=== PATIENT | female | born 1940 | race Caucasian/White ===

== ENCOUNTER 2016-07-06 15:36 | Observation (INO) | payer OTHER ==
[~2016-07-06] VITALS: Ht 167.6 cm; Wt 92.0 kg
[2016-07-06 16:58] VITALS: BP 128/82; PULSE 99; RESP 18; TEMP 99.6; O2SAT 99
[2016-07-06] MEDS ORDERED: ISOS30TA3 PO (17:40)
[2016-07-06] MEDS ORDERED: FURO1TAB60 PO (17:40)
[2016-07-06] MEDS ORDERED: LORA-392 PO (17:40)
[2016-07-06] MEDS ORDERED: GLIM1TAB PO (17:40)
[2016-07-06] MEDS ORDERED: SENN8.6T19 PO (17:40)
[2016-07-06] MEDS ORDERED: METO50TA PO (17:40)
[2016-07-06] MEDS ORDERED: PROC10TA PO (17:40)
[2016-07-06] MEDS ORDERED: SPIR50TA PO (17:40)
[2016-07-06] MEDS ORDERED: METF500T PO (17:40)
[2016-07-06] MEDS ORDERED: LORA-392 PO/SL (17:40)
--- NOTE | 2016-07-06 17:41 | PD ---
HPI Chief Complaint: Abdominal Pain Time Seen by Provider: 17:19 Travel History International Travel<30 days: No Contact w/Intl Traveler<30days: No Traveled to known affect area: No History of Present Illness HPI 75 years old female with coughing, shortness of breath, increased abdominal distention and abdominal pain. Patient has history of liver cirrhosis and ascites. Patient states that she has increasing abdominal pain and abdominal distention recently. Patient status post paracentesis in May 2016. Patient was scheduled for paracentesis about 2 weeks ago however patient has some weight loss and paracentesis was not done at that time. Patient states that she has increasing shortness of breath, dyspnea on exertion recently. Patient started having a mild productive cough since yesterday. Patient states that she had low-grade temperature since yesterday. Patient stated that she has mild aching headache. Patient denies any visual change. Patient denies any neck pain. Patient denies any chest pain. Patient states that she has nausea but no vomiting or diarrhea. PFSH Past Medical History Diabetes: Yes Patient Takes Glucophage: Yes ?: Not Menopausal: Yes Social History Alcohol Use: No Tobacco Use: No Allergies-Medications (Allergen,Severity, Reaction): Coded Allergies: Levaquin (Verified Allergy, Severe, 07/06/16) Penicillin (Verified Allergy, Severe, 07/06/16) Reported Meds & Prescriptions Reported Meds & Active Scripts Active Reported Ativan (Lorazepam) 0.5 Mg Tab 1 Mg PO Q4H PRN Ativan (Lorazepam) 0.5 Mg Tab 0.5 Mg PO/SL Q4H PRN Lasix (Furosemide) 40 Mg Tab 40 Mg PO DAILY Spironolactone 50 Mg Tab 50 Mg PO BID Prochlorperazine Maleate 10 Mg Tab 10 Mg PO Q6H PRN Senna-S 8.6-50 mg (Sennosides-Docusate Sodium) 1 Tab Tab 1 Tab PO Q12HR PRN Isosorbide Mononitrate ER (Isosorbide Mononitrate) 30 Mg Cale 30 Mg PO DAILY Metformin (Metformin HCl) 500 Mg Tab 500 Mg PO DAILY With a meal Glimepiride 1 Mg Tab 2 Mg PO BID Take with breakfast or first main meal Metoprolol Tartrate 50 Mg Tab 50 Mg PO BID Review of Systems General / Constitutional: No: Fever Eyes: No: Visual changes HENT: No: Headaches Cardiovascular: No: Chest Pain or Discomfort Respiratory: Positive: Cough, Shortness of Breath Gastrointestinal: Positive: Nausea, Abdominal Pain Genitourinary: No: Dysuria Musculoskeletal: No: Pain Skin: No Rash Neurologic: No: Weakness Psychiatric: No: Depression Endocrine: No: Polydipsia Hematologic/Lymphatic: No: Easy Bruising Physical Exam Narrative GENERAL: Well-nourished, well-developed patient. SKIN: Warm and dry. HEAD: Normocephalic. EYES: No scleral icterus. No injection or drainage. NECK: Supple, trachea midline. No JVD or lymphadenopathy. CARDIOVASCULAR: Regular rate and rhythm without murmurs, gallops, or rubs. RESPIRATORY: Breath sounds equal bilaterally. No accessory muscle use. GASTROINTESTINAL: Abdomen distended. Mild diffuse tenderness over the abdomen. No rebound tenderness. MUSCULOSKELETAL: No cyanosis, or edema. BACK: Nontender without obvious deformity. No CVA tenderness. Neurologic exam normal. Data Data Last Documented VS Vital Signs Date Time Temp Pulse Resp B/P Pulse Ox O2 Delivery O2 Flow Rate FiO2 07/06/16 19:00 98 20 135/72 94 Nasal Cannula 2.0 07/06/16 16:58 99.6 Orders Complete Blood Count With Diff (07/06/16 17:27) Comprehensive Metabolic Panel (07/06/16 17:27) B-Type Natriuretic Peptide (07/06/16 17:27) Prothrombin Time / Inr (Pt) (07/06/16 17:27) Act Partial Throm Time (Ptt) (07/06/16 17:27) Blood Culture (07/06/16 17:27) Lipase (07/06/16 17:27) Urinalysis - C+S If Indicated (07/06/16 17:27) Chest, Single Ap (07/06/16 17:27) Ct Abd/Pel W Iv Contrast(Rout) (07/06/16 17:27) Iv Access Insert/Monitor (07/06/16 17:27) Ecg Monitoring (07/06/16 17:27) Oximetry (07/06/16 17:27) Ammonia (07/06/16 17:27) Morphine Inj (Morphine Inj) (07/06/16 17:45) Ondansetron Inj (Zofran Inj) (07/06/16 17:45) Iohexol 350 Inj (Omnipaque 350 Inj) (07/06/16 19:49) Labs Laboratory Tests Test 07/06/16 07/06/16 18:00 18:05 White Blood Count 3.5 TH/MM3 Red Blood Count 4.62 MIL/MM3 Hemoglobin 13.7 GM/DL Hematocrit 40.6 % Mean Corpuscular Volume 87.8 FL Mean Corpuscular Hemoglobin 29.6 PG Mean Corpuscular Hemoglobin 33.7 % Concent Red Cell Distribution Width 14.7 % Platelet Count 105 TH/MM3 Mean Platelet Volume 9.1 FL Neutrophils (%) (Auto) % Lymphocytes (%) (Auto) % Monocytes (%) (Auto) % Eosinophils (%) (Auto) % Basophils (%) (Auto) % Neutrophils # (Auto) TH/MM3 Lymphocytes # (Auto) TH/MM3 Monocytes # (Auto) TH/MM3 Eosinophils # (Auto) TH/MM3 Basophils # (Auto) TH/MM3 CBC Comment AUTO DIFF Prothrombin Time 11.7 SEC Prothromb Time International 1.1 RATIO Ratio Activated Partial 29.3 SEC Thromboplast Time Sodium Level 132 MEQ/L Potassium Level 3.9 MEQ/L Chloride Level 99 MEQ/L Carbon Dioxide Level 21.2 MEQ/L Anion Gap 12 MEQ/L Blood Urea Nitrogen 9 MG/DL Creatinine 0.86 MG/DL Estimat Glomerular Filtration 64 ML/MIN Rate Random Glucose 97 MG/DL Calcium Level 7.8 MG/DL Total Bilirubin 1.0 MG/DL Aspartate Amino Transf 63 U/L (AST/SGOT) Alanine Aminotransferase 35 U/L (ALT/SGPT) Alkaline Phosphatase 114 U/L B-Type Natriuretic Peptide 101 PG/ML Total Protein 6.8 GM/DL Albumin 3.0 GM/DL Lipase 243 U/L Ammonia 32 MCMOL/L MDM Medical Decision Making Medical Screen Exam Complete: Yes Emergency Medical Condition: Yes Interpretation(s) Last Impressions Chest X-Ray 07/06/161726 Signed Impressions: Service Date/Time: Wednesday, July 06, 2016 17:44 - CONCLUSION: Normal examination for a patient of this age. Jeronimo Berman MD Abdomen/Pelvis CT 07/06/161726 Signed Impressions: Service Date/Time: Wednesday, July 06, 2016 19:36 - CONCLUSION: Liver cirrhosis with varices and moderate ascites. Multiple calcified gallstones without biliary ductal dilatation. Excess fluid in the endometrial cavity. Jeronimo Berman MD 2019 p.m. CBC within normal limit. Platelet 105. Sodium 132. BNP 101. Ammonia 32. INR 1.1. Differential Diagnosis Differential diagnosis including URI, bronchitis, pneumonia, PE, pneumothorax, CHF, ascites, gastritis, PUD, pancreatitis, cholecystitis, colitis, UTI, pyelonephritis. Narrative Course 75 years old female with shortness of breath, abdominal distention, fever, cough , nausea. History of liver cirrhosis and ascites. Patient will be admitted for observation with paracentesis pending in a.m. Diagnosis Primary Impression: Cirrhosis of liver with ascites Qualified Code: K74.60 - Cirrhosis of liver with ascites, unspecified hepatic cirrhosis type Admitting Information Admitting Physician Requests: Observation Steve Cameron MD Jul 06, 2016 17:41
[2016-07-06] MEDS ORDERED: MORPHINE SULFATE 4 MG/ML INJ IV PUSH ONE (17:45)
[2016-07-06] MEDS ORDERED: ONDANSETRON HCL 4 MG/2 ML VIAL IV PUSH ONE (17:45)
[2016-07-06 18:28] VITALS: BP 119/60; PULSE 106; RESP 26; O2SAT 93
[2016-07-06 18:41] LABS: HEMATOCRIT 40.6 % (35.0-46.0); MEAN CELL VOLUME 87.8 FL (80.0-100.0); MEAN CORPUSCULAR HEMOGLOBIN 29.6 PG (27.0-34.0); MEAN CORPUSCULAR HGB CONC 33.7 % (32.0-36.0); PLATELET COUNT 105 TH/MM3 (150-450); RED BLOOD COUNT 4.62 MIL/MM3 (4.00-5.30); RED CELL DISTRIBUTION WIDTH 14.7 % (11.6-17.2); WHITE BLOOD COUNT 3.5 TH/MM3 (4.0-11.0)
[2016-07-06 18:44] LABS: APTT (PATIENT) 29.3 SEC (24.3-30.1); INTERNATIONAL NORMALIZED RATIO 1.1 RATIO; PROTHROMBIN TIME - PATIENT 11.7 SEC (9.8-11.6)
--- NOTE | 2016-07-06 18:45 | RADRPT ---
EXAM DATE/TIME: 07/06/2016 17:44 [facility] COMPARISON: No previous studies available for comparison. INDICATIONS : Cough, Short of Breath. MEDICAL HISTORY : Chronic obstructive pulmonary disease. SURGICAL HISTORY : None. ENCOUNTER: Initial ACUITY: 2 days PAIN SCORE: 0/10 LOCATION: Bilateral chest FINDINGS: A single view of the chest demonstrates the lungs to be symmetrically aerated without evidence of mas s, infiltrate or effusion. The cardiomediastinal contours are unremarkable. Osseous structures are intact. CONCLUSION: Normal examination for a patient of this age. Jeronimo Berman MD on July 06, 2016 at 18:44 Board Certified Radiologist. This report was verified electronically.
[2016-07-06 18:58] LABS: HEMO FLAGS AUTO DIFF
[2016-07-06 19:00] VITALS: BP 135/72; PULSE 98; RESP 20; O2SAT 94
[2016-07-06 19:13] LABS: ANION GAP 12 MEQ/L (5-15); AST (GOT) 63 U/L (15-37); BICARBONATE 21.2 MEQ/L (21.0-32.0); BLOOD UREA NITROGEN 9 MG/DL (7-18); CHLORIDE 99 MEQ/L (98-107); GLOMERULAR FILTRATION RATE 64 ML/MIN (>89); POTASSIUM 3.9 MEQ/L (3.5-5.1); SODIUM (NA) 132 MEQ/L (136-145)
[2016-07-06 19:16] LABS: ALKALINE PHOSPHATASE 114 U/L (45-117); ALT (GPT) 35 U/L (10-53)
[2016-07-06] MEDS ORDERED: IOHEXOL 350 MG/ML 10 ML VIAL (for RAD DIAG) IV ONE (19:49)
--- NOTE | 2016-07-06 20:10 | RADRPT ---
EXAM DATE/TIME: 07/06/2016 19:36 [facility] COMPARISON: No previous studies available for comparison. INDICATIONS : Diffuse abdominal pain with distension. IV CONTRAST: 100 cc Omnipaque 350 (iohexol) IV ORAL CONTRAST: No oral contrast ingested. RADIATION DOSE: 11.75 CTDIvol (mGy) MEDICAL HISTORY : Diabetes mellitus type 2. Cirrhosis. SURGICAL HISTORY : None. ENCOUNTER: Initial ACUITY: 1 day PAIN SCALE: 4/10 LOCATION: Diffuse abdomen/pelvis TECHNIQUE: Volumetric scanning of the abdomen and pelvis was performed. Using automated exposure control and ad justment of the mA and/or kV according to patient size, radiation dose was kept as low as reasonably achievable to obtain optimal diagnostic quality images. FINDINGS: There is minimal basilar atelectasis scarring. There is liver cirrhosis with moderate ascites. Multiple calcified gallstones the gallbladder. The th ere are periumbilical varices and varices around the distal esophagus. Spleen is mildly enlarged. Adrenals, kidneys and pancreas unremarkable. No bowel obstruction. No free air. There is fluid attenuation within the endometrial cavity. Moderate degenerative disc disease. There is moderate to severe osteoarthritis at both hips. CONCLUSION: Liver cirrhosis with varices and moderate ascites. Multiple calcified gallstones without biliary duct al dilatation. Excess fluid in the endometrial cavity. Jeronimo Berman MD on July 06, 2016 at 20:04 Board Certified Radiologist. This report was verified electronically.
[2016-07-06] MEDS ORDERED: ACETAMINOPHEN 325 MG TAB PO PRN (20:30)
[2016-07-06] MEDS ORDERED: LORazepam 1 MG TAB PO PRN (20:30)
[2016-07-06] MEDS ORDERED: BISACODYL 10 MG SUPP PR PRN (20:30)
[2016-07-06] MEDS ORDERED: DOCUSATE SODIUM 50 MG/SENNA 8.6 MG TAB PO PRN (20:30)
[2016-07-06] MEDS ORDERED: ONDANSETRON HCL 4 MG/2 ML VIAL IVP PRN (20:30)
[2016-07-06] MEDS ORDERED: SODIUM CHLORIDE 0.9% FLUSH 5 ML FLUSH FLUSH PRN (20:30)
[2016-07-06] MEDS ORDERED: HYDROmorphone HCL PF 1 MG/ML VIAL IV PRN (20:30)
--- NOTE | 2016-07-06 20:34 | HHI.HP ---
[facility] Unknown Admission Diagnosis liver cirrhosis with ascites Diagnoses: (1) Cirrhosis of liver with ascites Diagnosis: Principal (2) Ascites Diagnosis: Principal (3) DM (diabetes mellitus) Diagnosis: Principal (4) DNR (do not resuscitate) Diagnosis: Principal (5) Hospice care patient Diagnosis: Principal Travel History International Travel<30 Days: No Contact w/Intl Traveler <30 Da: No Traveled to Known Affected Are: No History of Present Illness This is a 75-year-old DNR female with a PMH of HTN, DM and ESLD with Cirrhosis currently on Hospice who came to the ER w/ complaints of abdominal distention and abdominal pain x2 wks. States she's had to undergo Paracentesis on several occasions for recurrent ascites. On arrival, BP 128/82, HR 99, O2 sat 99% on RA , Temp 99.6. WBC 3.5. Platelets 105. Chemistry essentially unremarkable. CXR normal. CT Abd/Pelvis w/ cirrhosis/varices and moderate ascites. Plan is for therapeutic paracentesis and continuation of Hospice after d/c. Review of Systems Other ROS: 14 point review of systems otherwise negative. Past Family Social History Past Medical History PMH: HTN, DM and ESLD with Cirrhosis Past Surgical History PAST SURGICAL HISTORY: None Allergies: Coded Allergies: Levaquin (Verified Allergy, Severe, 07/06/16) Penicillin (Verified Allergy, Severe, 07/06/16) Family History PAST FAMILY HISTORY: Reviewed, positive for DM. Social History PAST SOCIAL HISTORY: Negative for alcohol, tobacco or drugs. Physical Exam Vital Signs Vital Signs Date Time Temp Pulse Resp B/P Pulse Ox O2 Delivery O2 Flow Rate FiO2 07/06/16 19:00 98 20 135/72 94 Nasal Cannula 2.0 07/06/16 18:36 Nasal Cannula 2.0 07/06/16 18:28 93 Room Air 07/06/16 18:28 106 26 119/60 93 Room Air 07/06/16 16:58 99.6 99 18 128/82 99 Physical Exam PE: GENERAL: Elderly female in no acute distress. HEENT: PERRLA, EOMI. No scleral icterus or conjunctival pallor. No lid lag or facial droop. CARDIOVASCULAR: Regular rate and rhythm. No obvious murmurs to auscultation. No chest tenderness to palpation. RESPIRATORY: No obvious rhonchi or wheezing. Clear to auscultation. Breath sounds equal bilaterally. GASTROINTESTINAL: Abdomen distended, mild tenderness to palpation. BS normal. MUSCULOSKELETAL: Extremities without clubbing, cyanosis, or edema. No obvious deformities. NEUROLOGICAL: Awake, alert and oriented x4. No focal neurologic deficits. Moving both upper and lower extremities spontaneously. Laboratory Laboratory Tests Test 07/06/16 07/06/16 18:00 18:05 White Blood Count 3.5 Red Blood Count 4.62 Hemoglobin 13.7 Hematocrit 40.6 Mean Corpuscular Volume 87.8 Mean Corpuscular Hemoglobin 29.6 Mean Corpuscular Hemoglobin 33.7 Concent Red Cell Distribution Width 14.7 Platelet Count 105 Mean Platelet Volume 9.1 Neutrophils (%) (Auto) Lymphocytes (%) (Auto) Monocytes (%) (Auto) Eosinophils (%) (Auto) Basophils (%) (Auto) Neutrophils # (Auto) Lymphocytes # (Auto) Monocytes # (Auto) Eosinophils # (Auto) Basophils # (Auto) CBC Comment AUTO DIFF Prothrombin Time 11.7 Prothromb Time International 1.1 Ratio Activated Partial 29.3 Thromboplast Time Sodium Level 132 Potassium Level 3.9 Chloride Level 99 Carbon Dioxide Level 21.2 Anion Gap 12 Blood Urea Nitrogen 9 Creatinine 0.86 Estimat Glomerular Filtration 64 Rate Random Glucose 97 Calcium Level 7.8 Total Bilirubin 1.0 Aspartate Amino Transf 63 (AST/SGOT) Alanine Aminotransferase 35 (ALT/SGPT) Alkaline Phosphatase 114 B-Type Natriuretic Peptide 101 Total Protein 6.8 Albumin 3.0 Lipase 243 Ammonia 32 Date/Time Procedure Status Source Growth 07/06/16 18:10 Aerobic Blood Culture Received Blood Peripheral Pending 07/06/16 18:10 Anaerobic Blood Culture Received Blood Peripheral Pending Result Diagram: 07/06/16 1800 07/06/16 1800 Assessment and Plan Problem List: (1) Cirrhosis of liver with ascites ICD Code: K74.60 Status: Acute (2) Ascites ICD Code: R18.8 Status: Acute (3) DM (diabetes mellitus) ICD Code: E11.9 Status: Acute (4) DNR (do not resuscitate) ICD Code: Z66 Status: Acute (5) Hospice care patient ICD Code: Z51.5 Status: Acute Assessment and Plan A/P: 1. Cirrhosis: w/ ESLD. Resume home Lasix, Aldactone and b-radha. 2. Ascites: Recurrent, secondary to above. CT Abd/Pelvis w/ cirrhosis/ varices and moderate ascites, images reviewed by me. Will consult IR for Therapeutic Paracentesis in am. 3. DM: Sliding scale w/ Accu-Cheks. Resume home Metformin and Glimepiride 4. DNR: Code Status confirmed. Pt wishes to remain DNR. 5. Hospice: Currently under Hospice for ESLD, pt wishes to resume Hospice at time of d/c. Hospice aware. 6. DVT Prophylaxis: SCD/Teds. 7. Social work for d/c planning as needed. 8. Case discussed w/ ER physician at length. Problem Qualifiers (1) Cirrhosis of liver with ascites: Qualified Code: K74.60 - Cirrhosis of liver with ascites, unspecified hepatic cirrhosis type Rula Navarro MD Jul 06, 2016 20:34
[2016-07-06 21:09] LABS: BANDS 1 % (0-6); METAMYELOCYTES 1 % (0-1); NEUTROPHIL # MANUAL DIFF 2.8 TH/MM3 (1.8-7.7); POLYS (SEG NEUTROPHILS) 78 % (16-70); WBC DIFF SAMPLE 100
[2016-07-06 21:12] LABS: OVALOCYTES 1+ (NORMAL)
[2016-07-06 21:15] LABS: KERATOCYTES 1+ (NORMAL)
[2016-07-06 21:16] LABS: PLATELET ESTIMATE SMEAR LOW (NORMAL); PLATELET MORPHOLOGY NORMAL (NORMAL); SCAN/DIFF FINAL DIFF MANUAL
[2016-07-06] MEDS: SPIRONOLACTONE 50 MG TAB PO SCH (21:21)
[2016-07-06] MEDS: GLIMEPIRIDE 1 MG TAB PO SCH (21:21)
[2016-07-06] MEDS: SODIUM CHLORIDE 0.9% FLUSH 5 ML FLUSH FLUSH SCH (21:21)
[2016-07-06] MEDS: METOPROLOL TARTRATE 50 MG TAB PO SCH (21:22)
[2016-07-06 22:00] VITALS: BP 121/63; PULSE 88; RESP 18; O2SAT 96
[2016-07-06] MEDS ORDERED: ZOLPIDEM TARTRATE 5 MG TAB PO PRN (22:45)
[2016-07-07] VITALS (8 sets, daily range): BP systolic 87–133; BP diastolic 45–66; PULSE 65–94; RESP 18–20; TEMP 96.4–100; O2SAT 90–95
[2016-07-07 04:56] LABS: AUTOMATED NEUTROPHIL # 1.7 TH/MM3 (1.8-7.7); BASOPHIL % 0.5 % (0.0-2.0); EOSINOPHIL % 0.4 % (0.0-4.0); HEMATOCRIT 39.9 % (35.0-46.0); HEMO FLAGS DIFF FINAL; LYMPHOCYTE # 1.3 TH/MM3 (1.0-4.8); MEAN CORPUSCULAR HEMOGLOBIN 29.6 PG (27.0-34.0); MONO % 17.2 % (0.0-8.0); NEUT % 46.9 % (16.0-70.0); PLATELET COUNT 120 TH/MM3 (150-450); RED BLOOD COUNT 4.59 MIL/MM3 (4.00-5.30); RED CELL DISTRIBUTION WIDTH 15.1 % (11.6-17.2); WHITE BLOOD COUNT 3.6 TH/MM3 (4.0-11.0)
[2016-07-07 05:05] LABS: INTERNATIONAL NORMALIZED RATIO 1.1 RATIO; PROTHROMBIN TIME - PATIENT 11.9 SEC (9.8-11.6)
[2016-07-07 05:24] LABS: ALT (GPT) 40 U/L (10-53); ANION GAP 8 MEQ/L (5-15); AST (GOT) 70 U/L (15-37); BICARBONATE 26.8 MEQ/L (21.0-32.0); BLOOD UREA NITROGEN 10 MG/DL (7-18); CHLORIDE 98 MEQ/L (98-107); GLOMERULAR FILTRATION RATE 55 ML/MIN (>89); POTASSIUM 3.8 MEQ/L (3.5-5.1); SODIUM (NA) 133 MEQ/L (136-145)
[2016-07-07 05:25] LABS: ALKALINE PHOSPHATASE 103 U/L (45-117); TOTAL BILIRUBIN ADULT 0.8 MG/DL (0.2-1.0)
[2016-07-07] MEDS ORDERED: ISOSORBIDE MONONITRATE 30 MG TAB PO SCH (07:00)
[2016-07-07] MEDS ORDERED: GLUCAGON 1 MG/ML VIAL OTHER PRN (07:45)
[2016-07-07] MEDS ORDERED: DEXTROSE 50% IN WATER 50 ML VIAL(D50) IV PUSH PRN (07:45)
[2016-07-07] MEDS: SODIUM CHLORIDE 0.9% FLUSH 5 ML FLUSH FLUSH SCH (09:00)
[2016-07-07] MEDS ORDERED: FUROSEMIDE 40 MG TAB PO SCH (09:00)
[2016-07-07] MEDS ORDERED: metFORMIN HCL 500 MG TAB PO SCH (09:00)
[2016-07-07] MEDS: SPIRONOLACTONE 50 MG TAB PO SCH (09:00)
[2016-07-07] MEDS: GLIMEPIRIDE 1 MG TAB PO SCH (09:19)
[2016-07-07] MEDS: METOPROLOL TARTRATE 50 MG TAB PO SCH (09:19)
[2016-07-07] MEDS ORDERED: RESP: ALBUTEROL 1.25 MG/3 ML NEB (PRN) NEB (09:45)
--- NOTE | 2016-07-07 09:46 | HHI.PR ---
Subjective Remarks Follow-up for abdominal pain. The patient continues to complain of soreness in her abdomen and bilateral flanks. She denies pain, describes it as an ache. She's been having nausea and vomiting. She denies any swallowing difficulties. She also states she's been coughing up clear phlegm for 2 days. She states her last paracentesis was 06/14, 8.9 L of fluid removed. She states she talked to hospice yesterday, and they may take her to the care center after discharge. Objective Vitals Vital Signs Date Time Temp Pulse Resp B/P Pulse Ox O2 Delivery O2 Flow Rate FiO2 07/07/16 03:35 97.5 80 18 121/66 95 07/07/16 01:36 97.6 82 20 100/59 95 07/07/16 00:00 88 18 133/66 95 Nasal Cannula 2 07/06/16 22:00 88 18 121/63 96 Nasal Cannula 2.0 07/06/16 19:00 98 20 135/72 94 Nasal Cannula 2.0 07/06/16 18:36 Nasal Cannula 2.0 07/06/16 18:28 93 Room Air 07/06/16 18:28 106 26 119/60 93 Room Air 07/06/16 16:58 99.6 99 18 128/82 99 Result Diagram: 07/07/1635607/[id number]/[id number] Imaging Last Impressions Chest X-Ray 07/06/161726 Signed Impressions: Service Date/Time: Wednesday, July 06, 2016 17:44 - CONCLUSION: Normal examination for a patient of this age. Jeronimo Berman MD Abdomen/Pelvis CT 07/06/161726 Signed Impressions: Service Date/Time: Wednesday, July 06, 2016 19:36 - CONCLUSION: Liver cirrhosis with varices and moderate ascites. Multiple calcified gallstones without biliary ductal dilatation. Excess fluid in the endometrial cavity. Jeronimo Berman MD Objective Remarks GENERAL: Well-developed well-nourished. In no acute distress. SKIN: Warm and dry. No lesions noted. HEENT: Normocephalic. Pupils equal and round. Mucous membranes pink and moist. CARDIOVASCULAR: Regular rate and rhythm. No murmur appreciated. RESPIRATORY: No accessory muscle use. Clear to auscultation. Breath sounds equal bilaterally. No wheezing. GASTROINTESTINAL: Abdomen soft, mild generalized TTP, distended. Bowel sounds x4. MUSCULOSKELETAL: No obvious deformities. No clubbing or cyanosis. No edema. NEUROLOGICAL: Awake and alert. No focal neurological deficits. Moves upper and lower extremities spontaneously. Normal speech. PSYCHIATRIC: Appropriate mood and affect; insight and judgment normal. A/P Problem List: (1) Cirrhosis of liver with ascites ICD Code: K74.60 Status: Chronic (2) Ascites ICD Code: R18.8 Status: Acute (3) DM (diabetes mellitus) ICD Code: E11.9 Status: Chronic (4) DNR (do not resuscitate) ICD Code: Z66 Status: Chronic (5) Hospice care patient ICD Code: Z51.5 Status: Chronic Assessment and Plan 75-year-old DNR female with a PMH of HTN, DM and ESLD with Cirrhosis currently on Hospice who presented to the ED w/ complaints of abdominal distention and abdominal pain x2 wks Cirrhosis: w/ ESLD. Continue home Lasix, Aldactone and b-radha. Ascites: Recurrent, secondary to above. CT Abd/Pelvis w/ cirrhosis/varices and moderate ascites. IR consulted for Therapeutic Paracentesis. Oral and intravenous narcotics as needed for pain. DM: Hold glimepiride with poor oral intake. Consider discontinuing metformin with liver disease. Coverage with Sliding scale w/ Accu-Cheks. Hospice/DNR: Currently under Hospice for ESLD, pt wishes to resume Hospice at time of d/c. Hospice aware. Code Status confirmed. Pt wishes to remain DNR. COPD/cough: Cough likely secondary to diaphragmatic distention from ascites. Chest x-ray reviewed and unremarkable. Currently satting well on room air. O2 and Nebs as needed. DVT Prophylaxis: SCD/Teds. Written by Eduardo Damon, acting as scribe for Dr. Palmer on 07/07/16 at 09:46. The documentation accurately reflects the work performed [id number] by me on at [id number]. Discharge Planning Discharge back to hospice after paracentesis. Problem Qualifiers (1) Cirrhosis of liver with ascites: Qualified Code: K74.60 - Cirrhosis of liver with ascites, unspecified hepatic cirrhosis type Eduardo Damon Jul 07, 2016 09:46 Francis Pamler MD Jul 07, 2016 12:26
[2016-07-07] MEDS: INSULIN ASPART SUPPLEMENTAL SCALE SQ SCH ×2 (11:00→16:00)
[2016-07-07] MEDS ORDERED: SODIUM CHLOR 0.9% 250 ML INJ 250 ML IV ONE (16:00)
[2016-07-07] MEDS ORDERED: LIDOCAINE HCL 1% PF 30 ML VIAL ONE (16:30)
--- NOTE | 2016-07-07 19:02 | RADRPT ---
EXAM DATE/TIME: 07/07/2016 08:25 [facility] COMPARISON: No previous studies available for comparison. EXTERNAL COMPARISON: [facility], US ABDOMEN-COMPLETE, May 09 2016. INDICATIONS : Ascites. MEDICAL HISTORY : Hypertension. End stage liver disease. Cirrhosis. Diabetes. SURGICAL HISTORY : Paracentesis. ENCOUNTER: Initial ACUITY: 1 month PAIN SCORE: 6/10 LOCATION: Right lower quadrant FLUID: Total volume of 2200 cc of clear, yellow fluid was removed. Fluid was discarded. Paracentesis was therapeutic only. Post procedure scanning reveals no hematoma or other complication. TECHNIQUE: 1. Ultrasound guidance for abdominal paracentesis. 2. Paracentesis. The risks, benefits, and alternatives to ultrasound guided paracentesis were explained to the patient in detail including the risk of bleeding and infection. Written and verbal informed consent was obt ained. With the patient on the ultrasound table, ultrasound imaging was used to select the most appropriate approach for paracentesis. Overlying skin was prepped and draped in the usual sterile fashion and wi th a local anesthetic, a dermatotomy was made with an 11 blade scalpel. A 6 Japanese [id number] ca theter was introduced into the peritoneal cavity and fluid was collected. The patient tolerated the procedure well and left the ultrasound suite in stable condition. CONCLUSION: Uncomplicated ultrasound guided paracentesis. Pavel Gipson MD on July 07, 2016 at 19:00 Board Certified Radiologist. This report was verified electronically.
--- NOTE | 2016-07-08 04:58 | HHI.DCPOC ---
Discharge Care Plan Diagnosis: (1) Cirrhosis of liver with ascites (2) Hospice care patient Your Health Problems Are: Difficulty with ADL Exercise Tolerance Goals to Promote Your Health * To prevent worsening of your condition and complications * To maintain your health at the optimal level Directions to Meet Your Goals Take your medications as prescribed Follow your dietary instruction Follow activity as directed Keep your appointments as scheduled Take your immunizations and boosters as scheduled If your symptoms worsen call your PCP, if no PCP go to Urgent Care Center or Emergency Room Smoking is Dangerous to Your Health. Avoid second hand smoke Call the 24-hour hour crisis hotline for domestic abuse at Francis Palmer MD Jul 08, 2016 04:58
== END 2016-07-07 19:50 | disposition home or self-care (01) ==
LOC: NEPD 15:36 → NEDA 20:32 → NEPFCDU 07-07 01:13
PROVIDERS: ADMIT Internal Medicine; ATTEND Internal Medicine
DX: K74.60 Unspecified cirrhosis of liver (principal); R18.8 Other ascites; K72.90 Hepatic failure, unspecified without coma; K80.20 Calculus of gallbladder without cholecystitis without obstruction; I10 Essential (primary) hypertension; E11.9 Type 2 diabetes mellitus without complications; J44.9 Chronic obstructive pulmonary disease, unspecified; Z66 Do not resuscitate
CPT/HCPCS: 49083; 71010; 74177; 80053; 82140; 82948; 83690; 83880; 85007; 85025; 85027; 85610; 85730; 87040; 96374; 96375; 99285; C1729; G0378; J2270; J2405; J7050; Q9967